=== PATIENT | male | born 1960 | race Two or more races ===

== ENCOUNTER 2025-03-18 11:36 | Emergency (ER) | payer MEDICARE, OTHER ==
[~2025-03-18] VITALS: Ht 175.3 cm; Wt 88.5 kg
[2025-03-18] MEDS ORDERED: RUXO5TAB MT (11:57)
[2025-03-18] MEDS ORDERED: AMLO-212 MT (11:57)
[2025-03-18] MEDS ORDERED: APIX5TAB MT (11:57)
[2025-03-18] MEDS ORDERED: METO-357 MT (11:57)
[2025-03-18] MEDS ORDERED: ALLO300T2 PO (11:58)
[2025-03-18 12:39] VITALS: BP 124/81; O2SAT 95
== END 2025-03-18 12:51 | disposition home or self-care (01) ==
LOC: ER 11:50
DX: S82.851A Displaced trimalleolar fracture of right lower leg, initial encounter for closed fracture (principal); Z79.01 Long term (current) use of anticoagulants; Z79.899 Other long term (current) drug therapy; Z86.718 Personal history of other venous thrombosis and embolism; Z96.652 Presence of left artificial knee joint; W01.0XXA Fall on same level from slipping, tripping and stumbling without subsequent striking against object, initial encounter; Y93.89 Activity, other specified; Y92.89 Other specified places as the place of occurrence of the external cause; Y99.8 Other external cause status
CPT/HCPCS: 73610; 73630; A4606; A4663